=== PATIENT | female | born 2000 ===

== ENCOUNTER 2025-06-28 12:16 | Outpatient (REF) | payer SELFPAY ==
[2025-06-28 13:30] LABS: ALT 20 U/L (14-59); AST 11 U/L (15-37); Albumin 4.0 g/dL (3.4-5.0); Alkaline Phosphatase 64 U/L (46-116); Bilirubin, Direct 0.1 mg/dL (0.0-0.2); Bilirubin, Total 0.2 mg/dL (0.2-1.0); Total Protein 7.2 g/dL (6.4-8.2)
[2025-06-28 22:46] LABS: HBs Antibody, Quant 576.3 mIU/mL (See Note); Hepatitis B Surface Ab Positive (See Note)
[2025-06-28 23:25] LABS: Hepatitis C Ab w Rflx HCV PCR Negative (Negative)
[2025-06-28 23:33] LABS: HIV-1/2 Ag & Ab Screen Negative (Negative)
== END 2025-06-28 12:17 | disposition home or self-care (01) ==
LOC: LBO 12:16
DX: Z11.4 Encounter for screening for human immunodeficiency virus [HIV] (principal); Z11.59 Encounter for screening for other viral diseases
CPT/HCPCS: 36415; 80076; 86706; 86803; 87340; 87389